=== PATIENT | female | born 1985 | race Caucasian/White ===

== ENCOUNTER 2020-02-24 08:32 | Emergency (ER) | payer SELFPAY ==
[~2020-02-24] VITALS: Ht 170.2 cm; Wt 59.0 kg
[~2020-02-24 08:32] MED LIST: PREN-385 PO
--- NOTE | 2020-02-24 08:35 | NUR ---
PATIENT WHEELCHAIR ASSISTED TO BED 4.
[2020-02-24 08:40] VITALS: BP 112/79
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
--- NOTE | 2020-02-24 08:55 | NUR ---
PT UNABLE TO URINATE, STATES TOO MUCH PAIN TO MOVE. DENIES RISK
[2020-02-24] MEDS: KETOROLAC 60 MG/2 ML VIAL IM ONE (09:25)
--- NOTE | 2020-02-24 09:25 | NUR ---
EMT AT BEDSIDE CLEANING AND DRESSSING WOUNDS
[2020-02-24] MEDS: BACITRACIN OINT 500 UNITS/GM PKT TP ONE (09:26)
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
--- NOTE | 2020-02-24 10:10 | NUR ---
DCPatient discharged with v/s stable. Written and verbal after care instructions about abrasion, myalgia given and explained. Patient alert, oriented and verbalized understanding of instructions. Ambulatory with steady gait. All questions addressed prior to discharge. ID band removed. Patient advised to follow up with PMD. Rx of motrin, norco given. Patient educated on indication of medication including possible reaction and side effects. Opportunity to ask questions provided and answered.
[2020-02-24 10:12] VITALS: BP 115/73
== END 2020-02-24 10:10 | disposition home or self-care (01) ==
LOC: MED 08:32
DX: S40.212A Abrasion of left shoulder, initial encounter (principal); S50.312A Abrasion of left elbow, initial encounter; S80.212A Abrasion, left knee, initial encounter; S60.812A Abrasion of left wrist, initial encounter; Z88.0 Allergy status to penicillin; Z79.899 Other long term (current) drug therapy; V03.90XA Pedestrian on foot injured in collision with car, pick-up truck or van, unspecified whether traffic or nontraffic accident, initial encounter; Y93.89 Activity, other specified; Y92.410 Unspecified street and highway as the place of occurrence of the external cause; Y99.8 Other external cause status
CPT/HCPCS: 73030; 73080; 73110; 73562; 96372; 99284; J1885

== ENCOUNTER 2020-04-12 | Emergency (ER) | payer SELFPAY ==
[~2020-04-12] VITALS: Ht 170.2 cm; Wt 54.4 kg
[2020-04-12 00:09] VITALS: BP 121/81
--- NOTE | 2020-04-12 00:15 | NUR ---
C/O RT EAR PAIN & EAR LOBE SWELLING X 1 WEEK SECONDARY C/O LT JAW PAIN. LEFT JAW SHOWS SWELLING AND IS TENDERNESS TO TOUCH. PT SAYS THERE IS CHANGES IN HEARING SECONDARY TO SWELLING ON HER RT EAR THAT IS BLOCKING HER EAR WAY CANAL. PMH: SEIZURES NKA
--- NOTE | 2020-04-12 00:20 | NUR ---
PT TAKEB TO BED 4
--- NOTE | 2020-04-12 00:22 | NUR ---
Dr. aCrmona examining patient.
[2020-04-12] MEDS ORDERED: LIDOCAINE/EPI 1% 1:100000 20 ML VIAL INJ ONE (00:30)
--- NOTE | 2020-04-12 00:46 | NUR ---
PT WAS EDUCATED ABOUT GETTING THE TDAP VACCINE. PT REFUSED TDAP VACCINE. JAVI BRAGA MADE AWARE.
--- NOTE | 2020-04-12 00:49 | NUR ---
Dr. Carmona at bedside for I/D procedure.
[2020-04-12] MEDS ORDERED: HYDROcodone/APAP 5/325 MG 1 TAB TAB PO ONE (01:30)
--- NOTE | 2020-04-12 01:58 | NUR ---
Patient discharged with v/s stable. Written and verbal after care instructions given and explained. Patient alert, oriented and verbalized understanding of instructions. Ambulatory with steady gait. All questions addressed prior to discharge. ID band removed. Patient advised to follow up with PMD. Rx of PENICILLIN; NORCO; KEPPRA given. Patient educated on indication of medication including possible reaction and side effects. Opportunity to ask questions provided and answered.
[2020-04-12 01:59] VITALS: BP 120/79
== END 2020-04-12 01:58 | disposition home or self-care (01) ==
LOC: MED
DX: H61.121 Hematoma of pinna, right ear (principal); K04.7 Periapical abscess without sinus; G40.909 Epilepsy, unspecified, not intractable, without status epilepticus; Z79.899 Other long term (current) drug therapy
CPT/HCPCS: 69000; 90715; 99283; J2001

== ENCOUNTER 2020-04-18 01:10 | Emergency (ER) | payer SELFPAY ==
[~2020-04-18] VITALS: Ht 165.1 cm; Wt 54.4 kg
[2020-04-18 01:19] VITALS: BP 144/86
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
--- NOTE | 2020-04-18 01:33 | NUR ---
ERMD AT BEDSIDE FOR MEDICAL EVALUATION.
[2020-04-18] MEDS: LIDOCAINE MPF 1% 10 MG/ML VIAL INJ ONE ×3 (01:55→03:22)
--- NOTE | 2020-04-18 02:28 | NUR ---
PATIENT RESTING IN BED. PAIN IS AN 8/10 AT THIS TIME. BED IN THE LOWEST POSITION. SIDE RAILX1. WILL CONTINUE TO MONITOR.
[2020-04-18] MEDS ORDERED: IBUPROFEN 800 MG TAB ONE (02:33)
[2020-04-18] MEDS ORDERED: HYDROcodone/APAP 5/325 MG 1 TAB TAB ONE ×2 (02:34→02:38)
[2020-04-18] MEDS ORDERED: LIDOCAINE/PRILOCAINE 2.5% 5 GM TUBE TP ONE (02:40)
--- NOTE | 2020-04-18 02:42 | NUR ---
ermd at bedside
[2020-04-18] MEDS: HYDROcodone/APAP 5/325 MG 1 TAB TAB PO ONE (03:00)
--- NOTE | 2020-04-18 03:17 | NUR ---
ERMD AT BEDSIDE FOR TX.
[2020-04-18] MEDS: IBUPROFEN 800 MG TAB PO ONE (03:21)
--- NOTE | 2020-04-18 04:20 | NUR ---
PT STATES SHE HAS A RIDE HOME AFTER SHE IS DISCHARGED.
[2020-04-18 04:24] VITALS: BP 135/79
--- NOTE | 2020-04-18 04:24 | NUR ---
Patient discharged with v/s stable. Written and verbal after care instructions given and explained. Patient alert, oriented and verbalized understanding of instructions. Ambulatory with steady gait. All questions addressed prior to discharge. ID band removed. Patient advised to follow up with PMD. Rx of CIPROFLOXACIN, NORCO, IBUPROFEN AND KEPPRA given. Patient educated on indication of medication including possible reaction and side effects. Opportunity to ask questions provided and answered.
== END 2020-04-18 04:24 | disposition home or self-care (01) ==
LOC: MED 01:10
DX: H61.121 Hematoma of pinna, right ear (principal); Z79.899 Other long term (current) drug therapy
CPT/HCPCS: 69000; 99283; J2001

== ENCOUNTER 2022-03-08 12:28 | Emergency (ER) | payer SELFPAY ==
[~2022-03-08] VITALS: Ht 160 cm; Wt 69.6 kg
[2022-03-08 12:52] VITALS: BP 147/76
[2022-03-08] MEDS ORDERED: IBUP-2213 PO (13:44)
[2022-03-08] MEDS ORDERED: CEPH-588 PO (13:44)
[2022-03-08] MEDS ORDERED: SULF-59 PO (13:44)
[2022-03-08] MEDS ORDERED: IBUPROFEN 600 MG TAB PO ONE (13:50)
[2022-03-08 14:05] VITALS: BP 116/77
--- NOTE | 2022-03-08 14:05 | NUR ---
Patient discharged with v/s stable. Written and verbal after care instructions given. Patient alert, oriented and verbalized understanding of instructions. Ambulatory with steady gait. All questions addressed prior to discharge. ID band removed. Patient advised to follow up with PMD. Rx of KEFLEX, IBUPROFEN AND BACTRIN given. Opportunity to ask questions provided and answered. WORK NOTE HANDED TO PATIENT.
--- NOTE | 2022-03-08 14:16 | NUR ---
Note undone in EDM - 03/08/22 at 1440 by BRITTNY Patient discharged with v/s stable. Written and verbal after care instructions given. Patient alert, oriented and verbalized understanding of instructions. Ambulatory with steady gait. All questions addressed prior to discharge. ID band removed. Patient advised to follow up with PMD. Rx of KEFLEX, IBUPROFEN AND BACTRIN given. Opportunity to ask questions provided and answered. WORK NOTE HANDED TO PATIENT.
== END 2022-03-08 14:05 | disposition home or self-care (01) ==
LOC: MED 12:28
DX: L03.116 Cellulitis of left lower limb (principal); R03.0 Elevated blood-pressure reading, without diagnosis of hypertension; F17.210 Nicotine dependence, cigarettes, uncomplicated; Z72.89 Other problems related to lifestyle; Z88.0 Allergy status to penicillin
CPT/HCPCS: 99283

== ENCOUNTER 2023-07-30 18:37 | Emergency (ER) | payer MEDICAID ==
[~2023-07-30] VITALS: Ht 167.6 cm; Wt 59.0 kg
[~2023-07-30 18:37] MED LIST changes: +CEPH-588 PO; +IBUP-2213 PO; +SULF-59 PO
[2023-07-30 19:02] VITALS: BP 133/88; PULSE 122; RESP 20; TEMP 100.4; O2SAT 98
[2023-07-30 21:41] LABS: FLU A ANTIGEN negative (NEGATIVE); FLU B ANTIGEN NEGATIVE (NEGATIVE)
[2023-07-30] MEDS ORDERED: AZIT250T4 PO (21:56)
[2023-07-30] MEDS ORDERED: PROM118S5 PO (21:56)
== END 2023-07-30 22:08 | disposition home or self-care (01) ==
LOC: MED 18:37
DX: J02.9 Acute pharyngitis, unspecified (principal); R05.9 Cough, unspecified; Z20.822 Contact with and (suspected) exposure to COVID-19; Z86.69 Personal history of other diseases of the nervous system and sense organs; Z79.899 Other long term (current) drug therapy; Z79.2 Long term (current) use of antibiotics; Z79.1 Long term (current) use of non-steroidal anti-inflammatories (NSAID); Z88.0 Allergy status to penicillin
CPT/HCPCS: 99283

== ENCOUNTER 2023-08-22 12:27 | Emergency (ER) | payer MEDICAID ==
[~2023-08-22] VITALS: Ht 157.5 cm; Wt 62.6 kg
[~2023-08-22 12:27] MED LIST changes: +AZIT250T4 PO; +PROM118S5 PO
[2023-08-22 13:02] VITALS: BP 120/94; PULSE 71; RESP 16; TEMP 97.8; O2SAT 100
== END 2023-08-22 13:39 | disposition left against medical advice (07) ==
LOC: MED 12:27
DX: M25.562 Pain in left knee (principal); Z53.21 Procedure and treatment not carried out due to patient leaving prior to being seen by health care provider
CPT/HCPCS: 99281

== ENCOUNTER 2024-05-20 20:09 | Emergency (ER) | payer MEDICAID, OTHER ==
[~2024-05-20] VITALS: Ht 160 cm; Wt 63.0 kg
[2024-05-20 20:18] VITALS: BP 124/70; PULSE 70; RESP 18; TEMP 98; O2SAT 98
[2024-05-20] MEDS ORDERED: BACI-418 TP (21:23)
[2024-05-20] MEDS ORDERED: ACET-8905 PO (21:23)
[2024-05-20] MEDS: BACITRACIN OINT 500 UNITS/GM PKT TP SCH (21:48)
[2024-05-20] MEDS: IBUPROFEN 600 MG TAB PO ONE (21:48)
[2024-05-20] MEDS: HYDROcodone/APAP 5/325 MG 1 TAB TAB PO ONE (21:48)
[2024-05-20 21:57] VITALS: BP 130/62; PULSE 82; RESP 18; TEMP 98; O2SAT 98
== END 2024-05-20 21:57 | disposition home or self-care (01) ==
LOC: MED 20:09
DX: S83.91XA Sprain of unspecified site of right knee, initial encounter (principal); R03.0 Elevated blood-pressure reading, without diagnosis of hypertension; Z86.69 Personal history of other diseases of the nervous system and sense organs; Z79.899 Other long term (current) drug therapy; Z88.0 Allergy status to penicillin; W01.198A Fall on same level from slipping, tripping and stumbling with subsequent striking against other object, initial encounter; Y92.89 Other specified places as the place of occurrence of the external cause; Y93.89 Activity, other specified; Y99.8 Other external cause status
CPT/HCPCS: 29505; 73562; 81025; 90715; 99283

== ENCOUNTER 2024-05-25 18:58 | Emergency (ER) | payer OTHER ==
[~2024-05-25] VITALS: Ht 160 cm; Wt 66.2 kg
[~2024-05-25 18:58] MED LIST changes: +ACET-8905 PO; +BACI-418 TP
[2024-05-25 19:12] VITALS: BP 124/76; PULSE 82; RESP 16; TEMP 98; O2SAT 99
[2024-05-25 19:42] VITALS: BP 124/76; PULSE 82; RESP 16; TEMP 98; O2SAT 99
== END 2024-05-25 19:42 | disposition home or self-care (01) ==
LOC: MED 18:58
DX: M25.571 Pain in right ankle and joints of right foot (principal); Z86.69 Personal history of other diseases of the nervous system and sense organs; Z79.899 Other long term (current) drug therapy; Z88.0 Allergy status to penicillin
CPT/HCPCS: 99281